=== PATIENT | female | born 1965 | race Caucasian/White ===

== ENCOUNTER 2021-04-01 09:45 | Outpatient (CLI) | payer BC | END 2021-04-01 09:46 | disposition home or self-care (01) | LOC: CSHMAMMO 09:45 | PROVIDERS: ATTEND Nurse Practitioner Family | DX: Z12.31 Encounter for screening mammogram for malignant neoplasm of breast (principal); N63.14 Unspecified lump in the right breast, lower inner quadrant | CPT/HCPCS: 77063; 77067 ==

== ENCOUNTER 2021-04-05 08:54 | Outpatient (CLI) | payer BC | END 2021-04-05 08:55 | disposition home or self-care (01) | LOC: CSHULT 08:54 | PROVIDERS: ATTEND Nurse Practitioner Family | DX: N63.10 Unspecified lump in the right breast, unspecified quadrant (principal) ==

== ENCOUNTER → 2021-04-12 | Day surgery (SDC) | payer BC | LOC: CSHULT 08:56 | PROVIDERS: ATTEND Nurse Practitioner Family | PROC: 0H9T3ZX Drainage of Right Breast, Percutaneous Approach, Diagnostic (ICD-10-PCS; principal; 2021-04-12) | DX: C50.811 Malignant neoplasm of overlapping sites of right female breast (principal) | CPT/HCPCS: 19083; 88305; 88341; 88342; 88360 ==

== ENCOUNTER 2021-08-27 11:06 | Outpatient (CLI) | payer BC | END 2021-08-27 11:07 | disposition home or self-care (01) | LOC: CSHLAB 11:06 | PROVIDERS: ATTEND Obstetrics & Gynecology | DX: Z01.812 Encounter for preprocedural laboratory examination (principal); Z20.822 Contact with and (suspected) exposure to COVID-19; Z80.0 Family history of malignant neoplasm of digestive organs | CPT/HCPCS: 80048; 84703; 85027; 86850; 86900; 86901; U0003; U0005 ==

== ENCOUNTER 2021-09-01 05:34 | Day surgery (SDC) | payer BC ==
[2021-08-27 12:34] LABS: BHCG - Serum Negative (NEGATIVE); Pregs Control Background? CLEAR/WHITE (CLR/WHITE); Pregs Control Bar Appear? YES (CONTROL BAR)
[2021-08-27 12:37] LABS: Hemoglobin 15.4 g/dL (12.0-15.5); Mean Corpuscular HGB CONC 34.4 g/dL (32.0-36.0); Mean Corpuscular Volume 98.9 fl (81.6-98.3); Mean Platelet Volume 9.9 fl (7.4-10.4); Platelet Count 234 10x3/uL (150-450); RBC Distribution Width 12.4 % (11.5-14.5); Red Blood Cell (RBC) Count 4.53 10x6/uL (3.90-5.03); White Blood Cell (WBC) Count 6.1 10x3/uL (3.5-10.5)
[2021-08-27 12:40] LABS: Anion Gap 14 mmol/L (10-20); BUN (Urea Nitrogen) 10 mg/dL (9.8-20.1); Calc. Creatinine Clearance 0 mL/min (70-130); Calcium 9.6 mg/dL (7.8-10.44); Carbon Dioxide 26 mmol/L (22-29); Chloride 100 mmol/L (98-107); Glucose 94 mg/dL (70-105); Potassium 4.1 mmol/L (3.5-5.1); Sodium 136 mmol/L (136-145)
[2021-08-27 14:55] VITALS: BMI 34.7
[2021-08-27 22:55] LABS: SARS-CoV-2 PCR by NAA Not Detected (NotDetected)
[2021-09-01] MEDS ORDERED: Lidocaine 1% MPF 2 ML VIAL ONE (06:11)
[2021-09-01] MEDS ORDERED: CeleCOXIB 100 MG CAP ONE (06:22)
[2021-09-01] MEDS ORDERED: Famotidine/PF 20 mg/2ml Vial ONE (06:22)
[2021-09-01] MEDS ORDERED: Gabapentin 300 MG CAP ONE (06:22)
[2021-09-01] MEDS ORDERED: Methylene Blue 50 MG/10 ML AMPUL ONE (06:41)
[2021-09-01] MEDS ORDERED: Bupivacaine PF 0.5% 30 ML VIAL ONE ×2 (06:41→06:42)
[2021-09-01] MEDS ORDERED: EPINEPHrine 1 MG/ML AMP ONE (06:41)
[2021-09-01] MEDS ORDERED: Lidocaine 4% Topical Sol 50 ML BOT ONE (06:42)
[2021-09-01] MEDS ORDERED: Lidocaine 1% PF 5 ML VIAL ONE (06:57)
[2021-09-01] MEDS ORDERED: PROPOFOL 20 ML ONE (06:57)
[2021-09-01] MEDS ORDERED: Fentanyl 250 MCG/5 ML VIAL ONE (06:57)
[2021-09-01] MEDS ORDERED: Midazolam HCl 2 mg/2 ml Vial ONE ×2 (06:57→07:21)
[2021-09-01] MEDS ORDERED: Rocuronium Bromide 10 MG/ML (10ML VIAL) ONE (06:57)
[2021-09-01] MEDS ORDERED: Ondansetron PF 4 MG/2 ML Vial ONE (06:57)
[2021-09-01] MEDS ORDERED: Glycopyrrolate 0.2 MG/ML 5 ML SYRINGE ONE (06:58)
[2021-09-01] MEDS ORDERED: Ketorolac Tromethamine 30 MG/ML VIAL ONE (06:58)
[2021-09-01] MEDS ORDERED: ceFAZolin 2 GM/Dextrose 50 ML IVPB ONE (07:17)
[2021-09-01] MEDS ORDERED: Ropivacaine 0.2% 550 ML 550 ML NERVE BLCK SCH (09:30)
== END 2021-09-01 12:25 | disposition home or self-care (01) ==
LOC: CSHSDC 05:34
PROVIDERS: ATTEND Obstetrics & Gynecology
PROC: 0UT74ZZ Resection of Bilateral Fallopian Tubes, Percutaneous Endoscopic Approach (ICD-10-PCS; principal; 2021-09-01)
PROC: 0UT24ZZ Resection of Bilateral Ovaries, Percutaneous Endoscopic Approach (ICD-10-PCS; principal; 2021-09-01)
PROC: 8E0W8CZ Robotic Assisted Procedure of Trunk Region, Via Natural or Artificial Opening Endoscopic (ICD-10-PCS; principal; 2021-09-01)
PROC: 0UT94ZZ Resection of Uterus, Percutaneous Endoscopic Approach (ICD-10-PCS; principal; 2021-09-01)
DX: D25.9 Leiomyoma of uterus, unspecified (principal); N80.0 Endometriosis of uterus; D27.9 Benign neoplasm of unspecified ovary; N83.8 Other noninflammatory disorders of ovary, fallopian tube and broad ligament; I10 Essential (primary) hypertension; E66.9 Obesity, unspecified; Z68.34 Body mass index [BMI] 34.0-34.9, adult; Z15.09 Genetic susceptibility to other malignant neoplasm; Z85.3 Personal history of malignant neoplasm of breast; Z79.810 Long term (current) use of selective estrogen receptor modulators (SERMs); Z79.899 Other long term (current) drug therapy; Z20.822 Contact with and (suspected) exposure to COVID-19
CPT/HCPCS: 36415; 80048; 84703; 85027; 86850; 86900; 86901; 88307; A4306; J0171; J0690; J1885; J2250; J2405; J2704; J2795; J3010; Q9968; S0020; S0028; U0003; U0005

== ENCOUNTER 2022-04-04 09:30 | Outpatient (CLI) | payer BC | END 2022-04-04 09:31 | disposition home or self-care (01) | LOC: CSHMAMMO 09:30 | PROVIDERS: ATTEND Internal Medicine Hematology & Oncology | DX: Z08 Encounter for follow-up examination after completed treatment for malignant neoplasm (principal); Z85.3 Personal history of malignant neoplasm of breast | CPT/HCPCS: 77066; G0279 ==

== ENCOUNTER 2023-04-11 09:37 | Outpatient (CLI) | payer BC | END 2023-04-11 09:38 | disposition home or self-care (01) | LOC: CSHMAMMO 09:37 | PROVIDERS: ATTEND Physician Assistant | DX: Z08 Encounter for follow-up examination after completed treatment for malignant neoplasm (principal); Z85.3 Personal history of malignant neoplasm of breast | CPT/HCPCS: 77066; G0279 ==

== ENCOUNTER 2024-04-12 13:57 | Outpatient (CLI) | payer BC | END 2024-04-12 13:58 | disposition home or self-care (01) | LOC: CSHMAMMO 13:57 | PROVIDERS: ATTEND Nurse Practitioner Family | DX: C50.811 Malignant neoplasm of overlapping sites of right female breast (principal); Z14.8 Genetic carrier of other disease | CPT/HCPCS: 77066; G0279 ==